=== PATIENT | female | born 1960 | race Caucasian/White ===

== ENCOUNTER 2018-02-04 14:31 | Observation (INO) | payer OTHER, MEDICAID ==
[~2018-02-04] VITALS: Ht 162.6 cm; Wt 117.5 kg
[~2018-02-04 14:31] MED LIST: AMLODIPINE BESYL5 MG PO; ASPIRIN EC81 M1 PO; ATORVASTATIN CA80 MG PO; CARAFATE 1 GM TA1 G1 PO; CARVEDILOL12.5 MG; CELEXA 20 MG TA20 MG PO; ELIQUIS5 MG PO; FOLGARD TABLET1 EAC1 PO; GABAPENTIN 100100 MG PO; HUMALOG100 UNIT/1 SUBQ; LANTUS; LANTUS SUBQ; LEVOXYL50 MCG PO; LISINOPRIL40 MG PO; MAXZIDE-25 MG1 EACH PO; METFORMIN HCL500 MG PO; NEXIUM 40 MG CA40 M1 PO; NITROGLYCERIN0.4 MG SUBLING; NORCO 10-325 T1 EACH PO; NOVOLOG100 UNIT/1; NOVOLOG100 UNIT/1 SUBQ; PROAIR HFA8.5 GM INH; SPIRIVA; SPIRIVA INH; STOOL SOFTENER100 M1 PO; STOOL SOFTENER50 MG; SYMBICORT80 MCG/4.1 INH; VICTOZA0.6 MG/0.1 SUBQ; WELLBUTRIN SR200 MG PO
[2018-02-04 15:35] VITALS: BP 148/55
[2018-02-04] MEDS ORDERED: PROZAC10 MG PO (16:05)
[2018-02-04] MEDS ORDERED: LANTUS SUBQ (16:07)
[2018-02-04 16:56] LABS: ABSOLUTE EOSINOPHILS 0.1 thou/uL (0.0-0.7); ABSOLUTE LYMPHOCYTES 1.3 thou/uL (0.8-5.3); ABSOLUTE MONOCYTES 0.4 thou/uL (0.0-1.2); ABSOLUTE NEUTROPHILS 2.8 thou/uL (1.6-8.1); BASOPHILS 0.5 %; EOSINOPHILS 2.7 %; HEMATOCRIT 33.6 % (37.0-47.0); HEMOGLOBIN 11.3 gm/dL (12.0-15.0); MCHC 33.6 g/dL (28.0-37.0); MCV 92.3 fL (80.0-100.0); MPV 8.4 fl. (7.2-11.1); NUCLEATED RBCS 0 /100WBC; PLATELET COUNT* 134 thou/uL (150-400); POLYS 60.8 %; RBC 3.64 mil/uL (4.20-5.00); RDW-CV 13.8 % (10.5-14.5); WBC 4.6 thou/uL (4.0-11.0)
[2018-02-04 17:16] LABS: ALBUMIN 3.2 g/dL (3.4-5.0); ALKALINE PHOSPHATASE 66 U/L (46-116); ANION GAP 9 mmol/L (7-16); BUN 11 mg/dL (7-18); CALCIUM 8.9 mg/dL (8.5-10.1); CHLORIDE 108 mmol/L (98-107); CO2 28 mmol/L (21-32); CREATININE 0.8 mg/dL (0.6-1.3); GLUCOSE 97 mg/dL (70-99); POTASSIUM 3.7 mmol/L (3.5-5.1); SGOT 23 U/L (15-37); SGPT 25 U/L (30-65); SODIUM 145 mmol/L (136-145); TOTAL PROTEIN 6.3 g/dL (6.4-8.2); TROPONIN-I LEVEL <0.06 ng/mL (<0.06)
--- NOTE | 2018-02-04 19:05 | NUR ---
PT DIRECT ADMIT TO ROOM [address] AT APPROXIMATELY 1535 VIA EMS WITH CHEST PAIN. REPORT RECEIVED FROM GABRIELA CROOK. PT ORIENTED TO ROOM AND CALL LIGHT. ADMISSION ASSESSMENT AND HISTORY COMPLETED. REFER TO CHARTING. SEPSIS SCREENING COMPLETED. PT SCREENED NEGATIVE. HOME MEDICATIONS RECONCILED AND RESTARTED. PT A&0X4. PT COMPLAINS OF PRESSURE TO CHEST 6/10- STATES SHE OCCASIONALLY GETS SHARP PAINS THAT COME AND GO LIKE WHAT HAPPENED AT [facility] THIS AM. PAIN TREATED WITH GI COCKTAIL WITH PARTIAL RELIEF. PT RECEIVED NITRO X [address] WITH NO RELIEF. PT HAD NITRO PASTE ON ADMIT- NITRO PASTE REMOVED PER DR FORMAN. PT ON 2L NC SAT 99%. DENIES ANY SHORTNESS OF BREATH. 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 RATE IN THE 40'S. CARDIOLOGY CONSULT IN PLACE. NO NEW ORDERS RECEIVED AT THIS TIME. TROPONIN BACK NEGATIVE. PT UP WITH 1 ASSIST SBA TO BATHROOM. MEDICATIONS PER DEC. PT REPOSITIONS SELF. HOURLY ROUNDING OBSERVED. BED IN LOW POSITION. BED ALARM IN PLACE. FALL PRECAUTIONS IN PLACE. CALL LIGHT WITHIN REACH. WILL CONTINUE PLAN OF CARE.
[2018-02-04 20:00] VITALS: BP 124/55
[2018-02-05] VITALS: BP 133/43
--- NOTE | 2018-02-05 02:59 | NUR ---
DOCTOR MEGHA NOTIFIED OF NIRANJAN TRAMMELL, NO NEW ORDERS.
[2018-02-05 04:00] VITALS: BP 139/57
[2018-02-05 05:07] LABS: ABSOLUTE EOSINOPHILS 0.1 thou/uL (0.0-0.7); ABSOLUTE LYMPHOCYTES 1.1 thou/uL (0.8-5.3); ABSOLUTE MONOCYTES 0.4 thou/uL (0.0-1.2); ABSOLUTE NEUTROPHILS 2.2 thou/uL (1.6-8.1); BASOPHILS 0.2 %; EOSINOPHILS 2.8 %; HEMATOCRIT 32.5 % (37.0-47.0); LYMPHOCYTES 28.1 %; MCHC 33.8 g/dL (28.0-37.0); MCV 91.6 fL (80.0-100.0); MONOCYTES 10.1 %; MPV 8.7 fl. (7.2-11.1); NUCLEATED RBCS 0 /100WBC; PLATELET COUNT* 108 thou/uL (150-400); POLYS 58.8 %; RBC 3.54 mil/uL (4.20-5.00); RDW-CV 13.8 % (10.5-14.5); WBC 3.8 thou/uL (4.0-11.0)
[2018-02-05 05:30] LABS: CALCIUM 8.3 mg/dL (8.5-10.1); CREATININE 0.9 mg/dL (0.6-1.3); POTASSIUM 3.8 mmol/L (3.5-5.1)
--- NOTE | 2018-02-05 07:37 | NUR ---
PATIENT DID NOT COMPLAIN OF CHEST PAIN. NO ACUTE CHANGES, PATIENT DID NOT SHOW SIGNS OF DISTRESS, FALL PRECAUTIONS IN PLACE, BED ALARM ON, HOURLY ROUNDING OBSERVED.
--- NOTE | 2018-02-05 07:45 | NUR ---
ASSUMED CARE OF PT ASSESSED AND DOCUMENTED. PT IS ON CARDIAC MONITER TRACING SB HR 49. PT IS A&O AND HAS NO C/O CHEST PAIN. PT IS ON ROOM AIR WITH CLEAR LUNGS. PT IS AFEBRILE. FALL PRECAUTIONS IN PLACE PER FACILITY PROTOCOL. BED IS IN LOW POSITION CALL LIGHT IS IN REACH. WM.
[2018-02-05 08:00] VITALS: BP 194/80
--- NOTE | 2018-02-05 09:24 | CON ---
[address] [address] CONSULTATION Name: MAGGIE KAMINSKI Room: [address] IN .R.#: [id number] Admission: 02/04/18 Attend Phys: Sivakumar Kurtz MD Discharge: Date of : 64 Report #: [id number] THIS REPORT FOR: //name// CC: Sivakumar Kurtz [facility] [employer] physician/PCP DATE OF SERVICE: 02/04/2018 INDICATION: Chest pain. HISTORY OF PRESENT ILLNESS: The patient is a very pleasant 57-year-old white female with history of IHSS. She presented to outside hospital Emergency Room complaining of chest pain. Troponin there was unremarkable. EKG was unremarkable. The patient reports the pain has been ongoing with radiation to the left shoulder and left arm and left jaw for 4-1/2 hours. The patient was transferred here for further treatment. The patient was given sublingual nitroglycerin at the outside hospital without relief of discomfort. PAST MEDICAL HISTORY: 1. IHSS. 2. Essential hypertension. 3. Mixed hyperlipidemia. 4. History of pulmonary embolus. 5. Hypothyroidism. 6. Insulin-dependent diabetes. 7. Arthritis. 8. Asthma. 9. GERD. 10. Bilateral knees replaced 2015. 11. Cholecystectomy. FAMILY HISTORY: Positive for coronary artery disease in patient's mother. SOCIAL HISTORY: The patient quit smoking in 1999. She does not drink alcohol. HOME MEDICATIONS: Toprol-XL 100 mg p.o. daily, aspirin 81 mg daily, lisinopril 20 mg daily, levothyroxine 0.05 mg daily, Protonix 40 mg daily, gabapentin 100 mg at bedtime, metformin 1000 mg b.i.d., Humulin 42 units at bedtime, atorvastatin 80 mg at bedtime. REVIEW OF SYSTEMS: Positive for chest discomfort, cough, dyspnea, otherwise unremarkable. PHYSICAL EXAMINATION: VITAL SIGNS: Stable. GENERAL: This is a pleasant, obese white female [place] [address] CONSULTATION Name: MAGGIE KAMINSKI Room: [address] IN [facility]#: [id number] Admission: 02/04/18 Attend Phys: Sivakumar Kurtz MD Discharge: Date of : 64 Report #: [id number] affect appropriate. HEENT: The patient is wearing glasses. Extraocular muscles intact. Mucous membranes moist. NECK: Shows no jugular venous distention. There are no carotid bruits. CHEST: Reveals clear lung person. CARDIOVASCULAR: Reveals a regular rhythm with a soft 1-2/6 holosystolic murmur heard best at the right upper sternal border. I do not appreciate gallop. ABDOMEN: Reveals normal bowel sounds. The abdomen is soft, nontender. EXTREMITIES: Shows trace ankle edema. SKIN: Warm and dry. IMPRESSION AND RECOMMENDATIONS: 1. 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 At this point in time, I will discontinue nitroglycerin and resume beta xiang. I would like to give her a fluid bolus in an effort to decrease obstruction. She has had fpiv-lw-bpecbkge obstruction by echocardiogram a year ago. We will repeat echocardiogram tomorrow. 2. Chest pain, likely due to idiopathic hypertrophic subaortic stenosis. We will rule out for myocardial infarction with serial enzymes. Repeat EKG at this time. 3. Hypertension. Continue home medications and adjust as needed. 4. History of pulmonary embolus remotely. Repeat D-dimer at this time. 5. Hyperlipidemia. Continue current statin agent. <ELECTRONICALLY SIGNED> By: Antonino Cardoza MD, FACC 02/05/18 0924 1644 [id number] Cardoza MD, FACC /nt
[2018-02-05 11:37] VITALS: BP 148/49
--- NOTE | 2018-02-05 13:50 | NUR ---
CM ASSESSMENT: Pt is A&O. Resides at home with her son. Independent with ADLs, continues to cook, clean and can drive, but does not have a vehicle. No DME. Hx of HH with [facility]. Hx of skilled at [facility], after a double knee replacement. Goal is to return home once medically stable. Following.
--- NOTE | 2018-02-05 14:22 | 2DMMODE ---
[place] [address] 2 D/M-MODE ECHOCARDIOGRAM Name: MAGGIE KAMINSKI Room: [address] [place]#: [id number] Admission: 02/04/18 Attend Phys: Sivakumar Kurtz, Discharge: Date of : 64 Date of Service: 02/05/18 1422 Report #: [id number] THIS REPORT FOR: //name// APPROVED REPORT Study performed: 02/05/2018 11:20:27 EXAM: Comprehensive 2D, Doppler, and color-flow Echocardiogram Patient Location: In-Patient Room #: [facility] Status: routine BSA: 2.18 HR: 52 bpm BP: 194/80 mmHg Rhythm: NSR Other Information Study Quality: Good Indications Aortic Valve Disease 2D Dimensions LVEF(%): 77.85 (>50%) IVSd: 11.63 (7-11mm) LVOT Diam: 18.57 (18-24mm) LVDd: 49.13 mm PWd: 10.27 (7-11mm) Ascending Ao: 39.15 (22-36mm) LVDs: 26.23 (25-40mm) Aortic Root: 29.53 mm Duenas's LVEF: 77.85 % Volumes Left Atrial Volume (Systole) LA ESV Index: 30.20 mL/m2 Aortic Valve AoV Peak Obinna.: 2.81 m/s AO Peak Gr.: 31.54 mmHg LVOT Max P.84 mmHg AO Mean Gr.: 17.02 mmHg LVOT Mean P.48 mmHg LVOT Max V: 1.31 m/s AO V2 VTI: 64.85 cm LVOT Mean V: 0.86 m/s NABIL (VTI): 1.50 cm2 LVOT V1 VTI: 35.84 cm AI [place]: 1.83 m/s2 AI PHT: 752.62 [place] [address] 2 D/M-MODE ECHOCARDIOGRAM Name: NEAL KAMINSKICHRISTIANE Melton Room: [address] M.R.#: [id number] Admission: 02/04/18 Attend Phys: Sivakumar Kurtz, Discharge: Date of : 64 Date of Service: 02/05/18 1422 Report #: [id number] Mitral Valve E/A Ratio: 2.67 MV Decel. Time: 190.66 ms MV E Max Obinna.: 1.29 m/s MV PHT: 55.29 ms MVA (PHT): 3.98 cm2 TDI E/Lateral E': 12.90 E/Medial E': 16.13 Medial E' Obinna.: 0.08 m/s Lateral E' Obinna.: 0.10 m/s Pulmonary Valve PV Peak Obinna.: 1.27 m/s PV Peak Gr.: 6.40 mmHg Tricuspid Valve TR Peak Gr.: 30.70 mmHg RVSP: 35.00 mmHg Left Ventricle The left ventricle is normal size. There is normal LV segmental wall motion. There is normal left ventricular wall thickness. Left ventricular systolic function is normal. The left ventricular ejection fraction is within the normal range. LVEF is 60%. Right Ventricle The right ventricle is normal size. The right ventricular systolic function is normal. Atria The left atrium size is normal. The right atrium size is normal. Aortic Valve Mild aortic valve sclerosis. Mild aortic regurgitation. No hemodynamically significant valvular aortic stenosis. Mitral Valve The mitral valve is normal in structure. Trace mitral regurgitation. No evidence of mitral valve stenosis. Tricuspid Valve The tricuspid valve is normal in structure. Mild tricuspid regurgitation. The RVSP is 35-40 mmHg. Pulmonic Valve The pulmonary valve is normal in structure. [place] [address] 2 D/M-MODE ECHOCARDIOGRAM Name: MAGGIE KAMINSKI Room: [address] M.R.#: [id number] Admission: 02/04/18 Attend Phys: Sivakumar Kurtz, Discharge: Date of : 64 Date of Service: 02/05/18 1422 Report #: [id number] valvular regurgitation. Great Vessels The aortic root is normal in size. IVC is normal in size and collapses with >50% inspiration Pericardium There is no pericardial effusion. <Conclusion> The left ventricle is normal size. There is normal left ventricular wall thickness. Left ventricular systolic function is normal. The left ventricular ejection fraction is within the normal range. LVEF is 60%. The right ventricle is normal size. The left atrium size is normal. Mild aortic valve sclerosis. Mild aortic regurgitation. No hemodynamically significant valvular aortic stenosis. The mitral valve is normal in structure. Trace mitral regurgitation. The tricuspid valve is normal in structure. Mild tricuspid regurgitation. The RVSP is 35-40 mmHg. IVC is normal in size and collapses with >50% inspiration There is no pericardial effusion. There is normal LV segmental wall motion. <ELECTRONICALLY SIGNED> By: Chester Cobos MD, FACC 02/05/18 1422 142 142 Chester Cobos MD, FACC /INF
[2018-02-05 15:31] VITALS: BP 125/54
[2018-02-05 16:31] VITALS: BP 125/54
[2018-02-05] MEDS ORDERED: TOPROL XL100 MG PO (17:06)
--- NOTE | 2018-02-05 17:44 | NUR ---
PT HAS BEEN D/C'D TO HOME. ALL CONSULTS OK WITH D/C. EDUCATION GIVEN RE FOLLOW-UP APPTS, MEDICATIONS, AND DRS ORDERS. SCRIPT GIVEN. IV AND CARDIAC MONITER D/C'D. ALL BELONGINGS PACKED UP. PT WAITING ON A RIDE.
--- NOTE | 2018-02-05 20:11 | NUR ---
PT LEFT UNIT AT 1999 VIA WHEELCHAIR TO FAMILY IN PRIVATE VEHICLE.
== END 2018-02-05 20:03 | disposition home or self-care (01) ==
LOC: M.PRE 14:31 → M.2W 15:30
PROVIDERS: ADMIT Internal Medicine
DX: I42.1 Obstructive hypertrophic cardiomyopathy (principal); R07.89 Other chest pain; K21.9 Gastro-esophageal reflux disease without esophagitis; E11.8 Type 2 diabetes mellitus with unspecified complications; Z79.4 Long term (current) use of insulin; M19.90 Unspecified osteoarthritis, unspecified site; E03.9 Hypothyroidism, unspecified; I10 Essential (primary) hypertension; E78.5 Hyperlipidemia, unspecified; J45.909 Unspecified asthma, uncomplicated; E66.9 Obesity, unspecified; Z90.49 Acquired absence of other specified parts of digestive tract; Z87.891 Personal history of nicotine dependence; Z96.653 Presence of artificial knee joint, bilateral; Z98.890 Other specified postprocedural states

== ENCOUNTER → 2020-07-14 | Outpatient (CLI) | payer OTHER, MEDICAID ==
[~2020-07-14] VITALS: Ht 162.6 cm; Wt 120.2 kg
[2020-07-14] VITALS (10 sets, daily range): BP systolic 118–189; BP diastolic 41–76
[~2020-07-14] MED LIST changes: +PROZAC10 MG PO; +TOPROL XL100 MG PO
[2020-07-14 09:26] LABS: HEMATOCRIT 40.3 % (37.0-47.0); HEMOGLOBIN 13.7 gm/dL (12.0-15.0); MCH 31.6 pg (26.0-34.0); MCHC 34.1 g/dL (28.0-37.0); MCV 92.6 fL (80.0-100.0); MPV 7.6 fl. (7.2-11.1); RBC 4.35 mil/uL (4.20-5.00); RDW-CV 13.9 % (10.5-14.5); WBC 5.8 thou/uL (4.0-11.0)
[2020-07-14 09:43] LABS: ALKALINE PHOSPHATASE 85 U/L (46-116); ANION GAP 6 mmol/L (7-16); BUN 21 mg/dL (7-18); CALCIUM 9.1 mg/dL (8.5-10.1); CHLORIDE 98 mmol/L (98-107); CHOLESTEROL 169 mg/dL (<200); CO2 33 mmol/L (21-32); CREATININE 1.3 mg/dL (0.6-1.3); GLUCOSE 270 mg/dL (70-99); HDL CHOLESTEROL 49 mg/dL (>40); LDL CHOLESTEROL 81 mg/dL (<100); POTASSIUM 4.8 mmol/L (3.5-5.1); SGOT 30 U/L (15-37); SGPT 33 U/L (30-65); SODIUM 137 mmol/L (136-145); TC:HDL 3.4 Ratio (Not establshd); TOTAL BILIRUBIN 1.2 mg/dL (<0.1-1.0); TOTAL PROTEIN 7.8 g/dL (6.4-8.2); TRIGLYCERIDE 198 mg/dL (<150); VLDL 40 mg/dL (<40)
[2020-07-14 09:44] LABS: SERUM ASSESSMENT Clear
[2020-07-14 09:47] LABS: APTT 22.3 Seconds (25.0-31.3); PROTIME 10.3 Seconds (9.20-11.50)
--- NOTE | 2020-07-14 13:42 | EKG ---
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: : 1960 Requested By: Antonino Cardoza Order Number: [id number] Yoli MD: Antonino Cardoza Measurements Intervals [place] Rate: 54 P: 36 NJ: 217 QRS: -13 QRSD: 97 T: 81 QT: 439 QTc: 416 Interpretive Statements Sinus rhythm Prolonged NJ interval LVH by voltage Compared to ECG 03/10/2017 11:16:07 Early repolarization now present Electronically Signed On 07-14-2020 13:41:57 CDT by Antonino Cardoza [email or web address] <ELECTRONICALLY SIGNED> By: Antonino Cardoza MD, [facility] 07/14/20 1341 0950 0950 Antonino Cardoza MD, [facility] /EPI
--- NOTE | 2020-07-14 16:53 | CARD ---
[address] [address] CARDIAC CATH REPORT Name: MAGGIE KAMINSKI Linh Room: [facility]#: [id number] Admission: 07/14/20 Attend Phys: Antonino Cardoza MD Discharge: Date of : 64 Report #: [id number] THIS REPORT FOR: //name// cc: Cathy Mccartney Carrie M. DO ~ APPROVED REPORT Study performed: 07/14/2020 09:43:37 Patient Details Patient Status: Out-Patient Room #: The patient is a 59 year-old female Event Personnel Antonino Cardoza Asbestos Microscopist, Niecy Jara RN Digital Content Specialist, Kaci Hastings RN Monitor, Mamta Cai RTR Scrub Procedures Performed Art Access - R femoral artery* Left Heart Cath w/or w/o Coronaries Hemostasis w/ Mynx Risk Factors Obesity, Hypertension, Diabetes Procedure Narrative The patient was brought electively to the Cardiac Catheterization Laboratory and was prepped and draped in a sterile manner. The right femoral was infiltrated with 2% Lidocaine subcutaneous anesthesia. A [place] 6 FR sheath was inserted into the right femoral artery. Coronary angiography was performed using coronary diagnostic catheters. The right coronary system was accessed and visualized with a 3DRC 6fr catheter. The left coronary system was accessed and visualized with a JL5 6fr catheter. The left ventricle was accessed and visualized with a 6 Fr Straight Pigtail catheter. Left ventriculogram was performed in SAUND[place] projection. Pre-demployment femoral angiogram was performed . Closure device was deployed with a 6 Fr Mynx. The patient tolerated the procedure well and there were no complications associated with the procedure. There was no hematoma. Intraoperative Conscious Sedation Sedation start time: 10:14 Case end Time: 10:31 Fentanyl 50 mcg Versed 1 [place] [address] CARDIAC CATH REPORT Name: GORDYMAGGIE S Room: [facility]#: [id number] Admission: 07/14/20 Attend Phys: Antonino Cardoza MD Discharge: Date of : 64 Report #: [id number] Fluoro Time: 4.8 minutes Dose: DAP 48730 cGycm2 1068 mGy Contrast Type and Amount: Visipaque 130 ml Diagnostic Cath Left Main The left main coronary artery is long and normal. The left main branches into a left anterior descending, high takeoff first diagonal, ramus and circumflex coronary arteries. LAD The left anterior descending coronary artery appears free of significant disease. The distal LAD tapers into a fairly small vessel. Diagonal 1 A high takeoff first diagonal branch is normal. Circumflex The circumflex coronary artery appears free of significant disease. The distal circumflex tapers into fairly small vessels including a left PDA. OM1 A obtuse marginal branch is normal. L PDA Small in caliber. No obvious stenoses. Right Coronary The right coronary artery has minimal plaquing proximally. The distal vessel tapers to a small vessel. Ramus The ramus branch is a large and normal-appearing vessel. Left Ventriculography The left ventricle is normal in size with normal contractility. The left ventricular ejection fraction is estimated to be 60-65%. Hemodynamics The aortic pressure is 166/71 mmHg with a mean of 107 mmHg. The left ventricular pressure is 178/2 mmHg with a mean of mmHg. The left ventricular end diastolic pressure is 12 mmHg. Conclusion 1. No evidence of hemodynamically significant stenoses. 2. The distal vessels do appear to taper into fairly small vessels. 3. Normal left ventricular end-diastolic pressure. 4. Normal left ventricular systolic function. Recommendations 1. Continue medical management and aggressive risk factor modification. <ELECTRONICALLY SIGNED> By: Antonino Cardoza MD, FACC 07/14/201651 51 51Micrandee Cardoza MD, FACC /INF
== END | disposition home or self-care (01) ==
LOC: M.CL 08:55
PROVIDERS: ATTEND Internal Medicine Cardiovascular Disease
DX: R07.9 Chest pain, unspecified (principal); I10 Essential (primary) hypertension; E11.9 Type 2 diabetes mellitus without complications; E66.09 Other obesity due to excess calories; M19.90 Unspecified osteoarthritis, unspecified site; E03.9 Hypothyroidism, unspecified; J45.909 Unspecified asthma, uncomplicated; K21.9 Gastro-esophageal reflux disease without esophagitis; I42.9 Cardiomyopathy, unspecified; Z98.890 Other specified postprocedural states; Z79.899 Other long term (current) drug therapy; Z79.4 Long term (current) use of insulin; Z79.01 Long term (current) use of anticoagulants; Z87.891 Personal history of nicotine dependence; Z96.653 Presence of artificial knee joint, bilateral; Z86.711 Personal history of pulmonary embolism; Z90.49 Acquired absence of other specified parts of digestive tract

== ENCOUNTER → 2020-10-20 | Outpatient (CLI) | payer OTHER, MEDICAID ==
[2020-10-20] VITALS (12 sets, daily range): BP systolic 93–134; BP diastolic 40–56
[~2020-10-20] MED LIST changes: +FUROSEMIDE 20 M20 MG PO; +IMDUR 30 MG TAB30 M1 PO; +K-DUR10 MEQ PO; +PROZAC 10 MG CA10 MG PO; -PROZAC10 MG PO; +WELLBUTRIN SR150 MG PO
--- NOTE | 2020-10-20 11:07 | TEE ---
[place] [address] TRANSESOPHAGEAL ECHOCARDIOGRAM Name: MAGGIE KAMINSKI Room: [facility]#: [id number] Admission: 10/20/20 Attend Phys: Antonino Cardoza, Discharge: Date of : 64 Date of Service: 10/20/20 1107 Report #: [id number] THIS REPORT FOR: cc: Cathy Mccartney Carrie M. DO Liston, Michael J. MD [facility] ~ APPROVED REPORT Study performed: 10/20/2020 09:13:59 EXAM: Transesophageal Echocardiogram Patient Location: Out-Patient BSA: 2.17 HR: 45 bpm BP: 127/56 mmHg Rhythm: NSR Other Information Study Quality: Good Indications Valvular Murmur Echo Enhancing Agent Indication: Rule out Shunt Agent(s) / Amount(s) Used: Agitated Saline 10 cc Procedure After obtaining informed consent, patient underwent transesophageal echo in the [facility]. Type of Sedation : Conscious Sedation Sedation was administered by Yocasta Yang RN. Sedation start time: 940 Case end Time: 950 Sedation was achieved intravenously with: Versed (4) Fentanyl (50) Transesophageal probe was inserted and advanced into esophagus without difficulty by Antonino Cardoza MD, FACC. Echo enhancement indication: R/O Septal defect. Echo enhancement agent administered: Agitated Saline The TATA was performed without complications. Throughout the procedure, the blood pressure, pulse oximetry, cardiac rhythm, and rate were monitored. The patient tolerated the procedure without adverse effects. Recovery from conscious sedation was uneventful and vital signs were [address] [address] TRANSESOPHAGEAL ECHOCARDIOGRAM Name: MAGGIE KAMINSKI Room: [facility]#: [id number] Admission: 10/20/20 Attend Phys: Antonino Cardoza, Discharge: Date of : 64 Date of Service: 10/20/20 1107 Report #: [id number] stable. Left Ventricle The left ventricle is normal size. There is normal LV segmental wall motion. There is normal left ventricular wall thickness. The left ventricular systolic function is normal. LVEF is 55-60%. Right Ventricle The right ventricle is normal size. The right ventricular systolic function is normal. Atria No thrombus is visualized in the left atrium or appendage. The left atrium size is normal. Injection of bubbles documented no interatrial shunt. The right atrium size is normal. Aortic Valve Aortic valve is bicuspid. Trace aortic regurgitation. There is no aortic valvular stenosis. Mitral Valve The mitral valve is normal in structure. Trace mitral regurgitation. No evidence of mitral valve stenosis. Tricuspid Valve The tricuspid valve is normal in structure. Mild tricuspid regurgitation. Pulmonic Valve The pulmonary valve is normal in structure. There is no pulmonic valvular regurgitation. <Conclusion> The left ventricle is normal size. There is normal left ventricular wall thickness. The left ventricular systolic function is normal. LVEF is 55-60%. Injection of bubbles documented no interatrial shunt. No thrombus is visualized in the left atrium or appendage. The left atrium size is normal. Aortic valve is bicuspid. Trace aortic regurgitation. There is no aortic valvular [place] [address] TRANSESOPHAGEAL ECHOCARDIOGRAM Name: AMANDANEAL VELARDECHRISTIANE Melton Room: [facility]#: [id number] Admission: 10/20/20 Attend Phys: Antonino Cardoza, Discharge: Date of : 64 Date of Service: 10/20/201106 Report #: [id number] Trace mitral regurgitation. Mild tricuspid regurgitation. <ELECTRONICALLY SIGNED> By: Antonino Cardoza MD, FAC 10/20/201106 06 06 Antonino Cardoza MD, FACC /INF
== END | disposition home or self-care (01) ==
LOC: M.CL 08:43
PROVIDERS: ATTEND Internal Medicine Cardiovascular Disease
DX: R01.1 Cardiac murmur, unspecified (principal); I08.3 Combined rheumatic disorders of mitral, aortic and tricuspid valves; Z98.890 Other specified postprocedural states; Z79.899 Other long term (current) drug therapy; Z86.711 Personal history of pulmonary embolism; Z79.01 Long term (current) use of anticoagulants

== ENCOUNTER 2021-03-22 11:45 | Observation (INO) | payer OTHER, MEDICAID ==
[~2021-03-22] VITALS: Ht 162.6 cm; Wt 124.6 kg
[~2021-03-22 11:45] MED LIST changes: -LISINOPRIL40 MG PO; +ZESTRIL40 MG PO
[2021-03-22 11:48] VITALS: BP 165/78
[2021-03-22 12:23] LABS: ABSOLUTE EOSINOPHILS 0.2 thou/uL (0.0-0.7); ABSOLUTE LYMPHOCYTES 1.5 thou/uL (0.8-5.3); ABSOLUTE MONOCYTES 0.5 thou/uL (0.0-1.2); ABSOLUTE NEUTROPHILS 3.2 thou/uL (1.6-8.1); BASOPHILS 0.5 %; EOSINOPHILS 2.8 %; HEMATOCRIT 37.4 % (37.0-47.0); HEMOGLOBIN 12.8 gm/dL (12.0-15.0); LYMPHOCYTES 27.2 %; MCH 31.5 pg (26.0-34.0); MCHC 34.4 g/dL (28.0-37.0); MCV 91.6 fL (80.0-100.0); MONOCYTES 9.5 %; MPV 7.9 fl. (7.2-11.1); NUCLEATED RBCS 0 /100WBC; PLATELET COUNT* 159 thou/uL (150-400); RBC 4.08 mil/uL (4.20-5.00); RDW-CV 13.7 % (10.5-14.5); WBC 5.4 thou/uL (4.0-11.0)
[2021-03-22 12:39] LABS: CALCIUM 8.8 mg/dL (8.5-10.1); CREATININE 1.1 mg/dL (0.6-1.3)
[2021-03-22 12:46] LABS: ALBUMIN 3.6 g/dL (3.4-5.0); TOTAL BILIRUBIN 0.4 mg/dL (<0.1-1.0); TOTAL PROTEIN 6.9 g/dL (6.4-8.2)
--- NOTE | 2021-03-22 15:40 | EKG ---
[place] [address] ELECTROCARDIOGRAM REPORT Name: MAGGIE KAMINSKI Room: [address]#: [id number] Admission: 03/22/21 Attend Phys: Sivakumar Kurtz, Discharge: Date of : 64 Date of Service: 03/22/21 1149 Report #: [id number] THIS REPORT FOR: //name// [facility] ED Test Date: 2021-03-22 Test Time: 11:49:49 Pat Name: MAGGIE KAMINSKI Department: Room: [facility] Gender: F Television Host: KASANDRA : 1960 Requested By: Mansoor Pickering Order Number: [id number] MD: Chester Cobos Measurements Intervals [place] Rate: 64 P: 44 OR: 220 QRS: -19 QRSD: 103 T: 79 QT: 426 QTc: 433 Interpretive Statements Sinus rhythm Prolonged OR interval Left ventricular hypertrophy Baseline wander in lead(s) III Compared to ECG 07/14/2020 09:50:43 No significant changes Electronically Signed On 03-22-2021 15:40:39 CDT by Chester Cobos [email or web address] <ELECTRONICALLY SIGNED> By: Chester Cobos MD, [facility] 03/22/21 1540 1149 1149 Chester Cobos MD, [facility] /EPI
[2021-03-22 17:41] VITALS: BP 141/59
[2021-03-22 20:15] VITALS: BP 138/69
[2021-03-22 20:25] VITALS: BP 154/74
[2021-03-22 23:22] VITALS: BP 189/76
[2021-03-23 02:00] VITALS: BP 142/48
[2021-03-23 03:42] VITALS: BP 144/54
--- NOTE | 2021-03-23 05:11 | NUR ---
PT ARRIVED FROM ED AT 2007. NURSING ASSESSMENT COMPLETED. STRING CUTTER IN PLACE, TRACING SR WITH 1D AV BLOCK. DENIES PAIN THIS SHIFT. HIGH FALL PRECAUTIONS IN PLACE. HOURLY ROUNDING COMPLETED. CALL LIGHT WITHIN REACH.
[2021-03-23 05:18] LABS: ABSOLUTE EOSINOPHILS 0.1 thou/uL (0.0-0.7); ABSOLUTE LYMPHOCYTES 1.2 thou/uL (0.8-5.3); ABSOLUTE MONOCYTES 0.4 thou/uL (0.0-1.2); ABSOLUTE NEUTROPHILS 2.9 thou/uL (1.6-8.1); BASOPHILS 0.4 %; EOSINOPHILS 2.3 %; HEMOGLOBIN 12.4 gm/dL (12.0-15.0); LYMPHOCYTES 26.1 %; MCH 31.4 pg (26.0-34.0); MCHC 34.5 g/dL (28.0-37.0); MCV 90.9 fL (80.0-100.0); MONOCYTES 9.4 %; MPV 7.9 fl. (7.2-11.1); NUCLEATED RBCS 0 /100WBC; PLATELET COUNT* 144 thou/uL (150-400); POLYS 61.8 %; RBC 3.96 mil/uL (4.20-5.00); RDW-CV 13.6 % (10.5-14.5); WBC 4.7 thou/uL (4.0-11.0)
[2021-03-23 05:26] LABS: CALCIUM 8.5 mg/dL (8.5-10.1); CREATININE 1.2 mg/dL (0.6-1.3); POTASSIUM 4.1 mmol/L (3.5-5.1)
[2021-03-23 08:00] VITALS: BP 142/63
[2021-03-23 12:00] VITALS: BP 158/60
[2021-03-23 15:49] VITALS: BP 158/60
--- NOTE | 2021-03-23 18:48 | NUR ---
PT DISCHARGED HOME WITH ALL BELONGINGS, ACCOMPANIED BY HER FRIEND. PT HAS A GOOD UNDERSTANDING OF DISCHARGE INSTRUCTIONS. PT DISCHARGED HOME. SALINE LOCK REMOVED HUB INTACT. PT DISMISSED HOME.
== END 2021-03-23 18:45 | disposition home or self-care (01) ==
LOC: M.ERS 11:45 → M.2W 13:03 → M.TBA-ER 13:03 → M.2W 20:53
PROVIDERS: Emergency Medicine; ADMIT Internal Medicine; ATTEND Internal Medicine
DX: R07.89 Other chest pain (principal); Z20.822 Contact with and (suspected) exposure to COVID-19; E11.9 Type 2 diabetes mellitus without complications; I42.9 Cardiomyopathy, unspecified; E87.1 Hypo-osmolality and hyponatremia; E66.01 Morbid (severe) obesity due to excess calories; Z79.899 Other long term (current) drug therapy; Z79.84 Long term (current) use of oral hypoglycemic drugs